=== PATIENT | male | born 1985 | race Caucasian/White ===

== ENCOUNTER 2025-01-02 10:19 | Emergency (ER) | payer MEDICARE, MEDICAID ==
[~2025-01-02] VITALS: Ht 170.2 cm; Wt 77.3 kg
[2025-01-02 11:37] VITALS: BP 101/56; TEMP 98; O2SAT 100
== END 2025-01-02 11:38 | disposition home or self-care (01) ==
LOC: M ED 10:19
DX: B86 Scabies (principal); E10.9 Type 1 diabetes mellitus without complications; Z88.0 Allergy status to penicillin; Z91.030 Bee allergy status

== ENCOUNTER → 2025-02-19 | Outpatient (CLI) | payer MEDICARE, MEDICAID | LOC: M RAD 15:38 | PROVIDERS: ATTEND Internal Medicine | DX: N50.89 Other specified disorders of the male genital organs (principal) ==